=== PATIENT | male | born 1990 | race Caucasian/White ===

== ENCOUNTER 2016-12-15 21:00 | Emergency (ER) | payer BC ==
[2016-12-15 21:23] VITALS: BP 124/79
[2016-12-15] MEDS ORDERED: Cephalexin CAP* 500 MG PO ONE (21:30)
[2016-12-15] MEDS ORDERED: Tetan/Diph/Pertus SYR(Tdap)* 0.5 ML SYR(BOOSTRIX) use SYR IM ONE (21:30)
--- NOTE | 2016-12-15 21:38 | UC ---
Hand/Wrist HPI - HPI Summary HPI Summary: 26 yo male lacerated his left thumb on 12/12. Sutured at home the next day now swollen and painful he is right handed unsure of last tetanus - History Of Current Complaint Chief Complaint: UCLaceration Stated Complaint: LEFT THUMB WOUND CHECK Time Seen by Provider: 12/15/16 21:25 Hx Obtained From: Patient Onset/Duration: Sudden Onset Severity Initially: Moderate Severity Currently: Moderate Pain Intensity: 4 Pain Scale Used: 0-10 Numeric Character Of Pain: Dull, Aching Aggravating Factor(s): Other - touch Alleviating: Elevation Associated Signs And Symptoms: Positive: Swelling, Redness Related History: Dominant Hand Right - Allergies/Home Medications Allergies/Adverse Reactions: Allergies Allergy/AdvReac Type Severity Reaction Status Date / Time No Known Allergies Allergy Verified 12/15/16 21:15 PMH/Surg Hx/FS Hx/Imm Hx Previously Healthy: Yes - Surgical History Surgical History: Yes Surgery Procedure, Year, and Place: osteochondroma's removed both wrists and knees - Family History Known Family History: Positive: Hypertension - Social History Alcohol Use: Occasionally Substance Use Type: None Smoking Status (MU): Never Smoked Tobacco Type: Smokeless Tobacco - Immunization History Most Recent Tetanus Shot: unknown Review of Systems Constitutional: Negative Skin: Negative Eyes: Negative ENT: Negative Respiratory: Negative Cardiovascular: Negative Gastrointestinal: Negative Genitourinary: Negative Motor: Negative Neurovascular: Negative Musculoskeletal: Negative Neurological: Negative Psychological: Negative All Other Systems Reviewed And Are Negative: Yes Physical Exam Triage Information Reviewed: Yes Appearance: Well-Appearing, No Pain Distress, Well-Nourished Vital Signs: Initial Vital Signs Temp 98.2 F 12/15/16 21:10 Pulse 88 12/15/16 21:10 Resp 17 12/15/16 21:10 BP 124/79 12/15/16 21:10 Pulse Ox 96 12/15/16 21:10 Vital Signs Reviewed: Yes Eyes: Positive: Conjunctiva Clear ENT: Positive: Hearing grossly normal. Negative: Nasal congestion, Nasal drainage, Tonsillar exudate, Trismus, Muffled/hoarse voice Neck: Positive: Supple, Nontender, No Lymphadenopathy Respiratory: Positive: Lungs clear, Normal breath sounds, No respiratory distress Cardiovascular: Positive: RRR, No Murmur Musculoskeletal: Positive: Strength Intact, Edema @ - around laceration Skin Exam: Other - see image Hand/Wrist Course/Dx - Course Course Of Treatment: SUTURES REMOVED. STERILE DRESSING APPLIED - Differential Dx/Diagnosis Provider Diagnoses: INFECTED LEFT THUMB LACERATION Discharge - Discharge Plan Condition: Stable Disposition: HOME Prescriptions: Cephalexin CAP* [Keflex CAP*] 500 mg PO QID #28 cap Patient Education Materials: Cellulitis (ED) Referrals: No Primary Care Phys,NOPCP [Primary Care Provider] - Additional Instructions: infected left thumb laceration soak in warm soapy water 2x day until healed apply a thin film of antibiotic ointment keep it dressed while at work RECHECK FOR WORSENING SYMPTOMS RECHECK IN A WEEK IF NOT WELL HEALED YOUR TETANUS WAS UPDATED TODAY Images Hands: 1 - lac with surrounding erthyema
== END 2016-12-15 22:07 | disposition home or self-care (01) ==
LOC: UCCORT 21:00
DX: S61.012S Laceration without foreign body of left thumb without damage to nail, sequela (principal); L08.9 Local infection of the skin and subcutaneous tissue, unspecified; X58.XXXS Exposure to other specified factors, sequela; Y92.9 Unspecified place or not applicable; Z23 Encounter for immunization
CPT/HCPCS: 90471; 90715; 99212; A9270-GY; G0463

== ENCOUNTER 2017-09-08 12:40 | Emergency (ER) | payer BC ==
[2017-09-08 15:29] VITALS: BP 129/88
--- NOTE | 2017-09-08 15:30 | UC ---
Respiratory Complaint HPI - HPI Summary HPI Summary: 24 hours of symptoms- cough, productive, body aches, fever, chills, throat pain. Patient believes symptoms are improving, has similar symptoms, works in day care. no prior illnesses. - History of Current Complaint Chief Complaint: UCGeneralIllness Stated Complaint: COUGH Time Seen by Provider: 09/08/17 15:24 Hx Obtained From: Patient Onset/Duration: Sudden Onset, Lasting Days Timing: Constant Severity Initially: Moderate Severity Currently: Moderate Pain Intensity: 2 Pain Scale Used: 0-10 Numeric Character: Cough: Nonproductive - Allergies/Home Medications Allergies/Adverse Reactions: Allergies Allergy/AdvReac Type Severity Reaction Status Date / Time No Known Allergies Allergy Verified 09/08/17 15:25 PMH/Surg Hx/FS Hx/Imm Hx Previously Healthy: Yes - Surgical History Surgical History: Yes Surgery Procedure, Year, and Place: osteochondroma's removed both wrists and knees - Family History Known Family History: Positive: Hypertension - Social History Alcohol Use: None Substance Use Type: None Smoking Status (MU): Never Smoked Tobacco Type: Smokeless Tobacco - Immunization History Most Recent Tetanus Shot: unknown Review of Systems Constitutional: Fever, Chills ENT: Sore Throat Respiratory: Cough Is Patient Immunocompromised?: No All Other Systems Reviewed And Are Negative: Yes Physical Exam Triage Information Reviewed: Yes Appearance: Well-Appearing, No Pain Distress, Well-Nourished Vital Signs: Initial Vital Signs Temp 99.2 F 09/08/17 15:24 Pulse 98 09/08/17 15:24 Resp 16 09/08/17 15:24 BP 129/88 09/08/17 15:24 Pulse Ox 99 09/08/17 15:24 Vital Signs Reviewed: Yes Eyes: Positive: Conjunctiva Clear ENT: Positive: Pharyngeal erythema - minimally no erythema, TMs normal, Sinus tenderness - minimally, Uvula midline Neck: Positive: Supple, Nontender, No Lymphadenopathy Respiratory: Positive: Chest non-tender, Lungs clear, Normal breath sounds, No respiratory distress, No accessory muscle use Cardiovascular: Positive: RRR, No Murmur Abdomen Description: Positive: Nontender, No Organomegaly. Negative: CVA Tenderness (R), CVA Tenderness (L) UC Diagnostic Evaluation - Laboratory O2 Sat by Pulse Oximetry: 99 Respiratory Course/Dx - Course Course Of Treatment: rapid flu- + for influ A. tamiflu given to and , work note given, increase rest, conservative treatment. - Differential Dx/Diagnosis Provider Diagnoses: influenza A Discharge - Discharge Plan Condition: Good Disposition: HOME Prescriptions: Dextromethorphan/Benzocaine [Cepacol Sorethroat-Cough [place]] 1 each PO Q4HR PRN # 60 lozenge PRN Reason: sore throat, pain Oseltamivir CAP* [Tamiflu CAP*] 75 mg PO BID #10 cap Patient Education Materials: Influenza (ED) Forms: *Work Release Referrals: No Primary Care Phys,NOPCP [Primary Care Provider] - Additional Instructions: - increase fluids - Increase rest - Motrin/ tylenol as needed for pain - cepacol lozenges for your throat - FOllow up with primary physician within 2-3 days if no improvement, worsening
== END 2017-09-08 16:23 | disposition home or self-care (01) ==
LOC: UCCORT 12:40
DX: J10.1 Influenza due to other identified influenza virus with other respiratory manifestations (principal)
CPT/HCPCS: 87502; 99212; G0463

== ENCOUNTER 2018-09-03 18:32 | Emergency (ER) | payer BC ==
[2018-09-03 19:27] VITALS: BP 139/82
--- NOTE | 2018-09-03 19:38 | ED ---
Throat Pain/Nasal Congestion - HPI Summary HPI Summary: 28 yr old male with the complaint of bilateral frontal sinus pressure, and maxillary sinus pressure for about a month. Pain is moderate, and associated with yellow nasal drainage. No fever or chills. He also has a cough. He works in a [employer] environment. - History of Current Complaint Chief Complaint: UCGeneralIllness Time Seen by Provider: 09/03/18 19:30 - Allergies/Home Medications Allergies/Adverse Reactions: Allergies Allergy/AdvReac Type Severity Reaction Status Date / Time No Known Allergies Allergy Verified 09/03/18 19:27 PMH/Surg Hx/FS Hx/Imm Hx Previously Healthy: Yes - Surgical History Surgery Procedure, Year, and Place: osteochondroma's removed both wrists and knees. hernia repair 2007 Infectious Disease History: No Infectious Disease History: Denies: Traveled Outside the [place] in Last 30 Days - Family History Known Family History: Positive: Hypertension - Social History Occupation: Employed Full-time Lives: With Family Alcohol Use: Occasionally Substance Use Type: Reports: None Smoking Status (MU): Never Smoked Tobacco Type: Smokeless Tobacco Review of Systems Constitutional: Negative Positive: Nasal Discharge, Other Positive: Cough All Other Systems Reviewed And Are Negative: Yes Physical Exam Triage Information Reviewed: Yes Vital Signs On Initial Exam: Initial Vitals Temp Pulse Resp BP Pulse Ox 97.6 F 79 17 139/82 99 09/03/18 19:23 09/03/18 19:23 09/03/18 19:23 09/03/18 19:23 09/03/18 19:23 Vital Signs Reviewed: Yes Appearance: Positive: Well-Appearing, No Pain Distress Skin: Positive: Warm, Skin Color Reflects Adequate Perfusion Head/Face: Positive: Normal Head/Face Inspection Eyes: Positive: EOMI ENT: Positive: Nasal congestion, Nasal drainage, TMs normal, Sinus tenderness Neck: Positive: Nontender Respiratory/Lung Sounds: Positive: Clear to Auscultation, Breath Sounds Present Cardiovascular: Positive: RRR. Negative: Murmur Abdomen Description: Negative: Distended Musculoskeletal: Positive: Strength/ROM Intact Neurological: Positive: Sensory/Motor Intact, Alert, Oriented to Person Place, Time, CN Intact II-III, Normal Gait, Speech Normal Psychiatric: Positive: Normal Diagnostics - Vital Signs Vital Signs Temp Pulse Resp BP Pulse Ox 09/03/18 19:23 97.6 F 79 17 139/82 99 - Laboratory Lab Statement: Any lab studies that have been ordered have been reviewed, and results considered in the medical decision making process. EENT Course/Dx - Course Course Of Treatment: 28 yr old with sinusitis. Elevated BP, referral to PMD, and augmentin for sinuses. - Diagnoses Provider Diagnoses: Sinusitis, Hypertension Discharge - Sign-Out/Discharge Documenting (check all that apply): Patient Departure All imaging exams completed and their final reports reviewed: No Studies - Discharge Plan Condition: Good Disposition: HOME Prescriptions: Amoxicillin/Clavulanate TAB* [Augmentin TAB 875*] 875 mg PO BID #20 tab Patient Education Materials: Sinusitis (ED), Hypertension (ED) Referrals: No Primary Care Phys,NOPCP [Primary Care Provider] - [facility] [place] [facility]ERR[facility] [Outside] - 3 Days - Billing Disposition and Condition Condition: GOOD Disposition: Home
== END 2018-09-03 19:41 | disposition home or self-care (01) ==
LOC: UCCORT 18:32
DX: J32.9 Chronic sinusitis, unspecified (principal); I10 Essential (primary) hypertension
CPT/HCPCS: 99212; G0463

== ENCOUNTER 2019-08-24 14:51 | Emergency (ER) | payer BC ==
[2019-08-24 15:25] VITALS: BP 132/84
--- NOTE | 2019-08-24 15:49 | UC ---
Throat Pain/Nasal Jarvis HPI - HPI Summary HPI Summary: 29-year-old male comes in with a chief complaint of sinusitis symptoms for one month. Patient's had yellow rhinorrhea sinus pressure or postnasal drip. Hot steamy showers help move the rhinorrhea out. Patient reports he works in a [employer] environments and he gets recurrent sinusitis in the wintertime. No chest congestion. His ears have been popping recently. - History of Current Complaint Chief Complaint: UCGeneralIllness Stated Complaint: SINUS COMPLAINT Time Seen by Provider: 08/24/19 15:39 Pain Intensity: 0 - Allergies/Home Medications Allergies/Adverse Reactions: Allergies Allergy/AdvReac Type Severity Reaction Status Date / Time No Known Allergies Allergy Verified 08/24/19 15:25 PMH/Surg Hx/FS Hx/Imm Hx Previously Healthy: Yes - Surgical History Surgical History: Yes Surgery Procedure, Year, and Place: osteochondroma's removed both wrists and knees. hernia repair 2007 - Family History Known Family History: Positive: Hypertension - Social History Alcohol Use: None Substance Use Type: None Smoking Status (MU): Never Smoked Tobacco Type: Smokeless Tobacco - Immunization History Most Recent Tetanus Shot: unknown Review of Systems All Other Systems Reviewed And Are Negative: Yes Constitutional: Positive: Other - see hpi Skin: Positive: Negative Eyes: Positive: Negative ENT: Positive: Sore Throat, Nasal Discharge, Sinus Congestion, Sinus Pain/ Tenderness Respiratory: Positive: Negative Cardiovascular: Positive: Negative Gastrointestinal: Positive: Negative Motor: Positive: Negative Neurovascular: Positive: Negative Musculoskeletal: Positive: Negative Neurological: Positive: Negative Psychological: Positive: Negative Is Patient Immunocompromised?: No Physical Exam Triage Information Reviewed: Yes Appearance: Well-Appearing, No Pain Distress, Well-Nourished Vital Signs: Initial Vital Signs Temp 97.5 F 08/24/19 15:21 Pulse 97 08/24/19 15:21 Resp 17 08/24/19 15:21 BP 132/84 08/24/19 15:21 Pulse Ox 97 08/24/19 15:21 Vital Signs Reviewed: Yes Eye Exam: Normal Eyes: Positive: Conjunctiva Clear ENT: Positive: Nasal congestion, Nasal drainage, Sinus tenderness Neck: Positive: Supple Respiratory: Positive: Lungs clear, Normal breath sounds, No respiratory distress Cardiovascular: Positive: RRR Musculoskeletal: Positive: Strength Intact, ROM Intact Neurological: Positive: Alert, Muscle Tone Normal Psychological: Positive: Age Appropriate Behavior Skin Exam: Normal Throat Pain/Nasal Course/Dx - Course Course Of Treatment: going to treat with Augmentin. Also do a prescription for Flonase. I also recommended using nasal lavage. Reevaluate if not improving or worse. Otherwise follow-up primary care doctor. - Differential Dx/Diagnosis Provider Diagnosis: Sinusitis Discharge ED - Sign-Out/Discharge Documenting (check all that apply): Patient Departure All imaging exams completed and their final reports reviewed: No Studies - Discharge Plan Condition: Stable Disposition: HOME Prescriptions: Amoxicillin/Clavulanate TAB* [Augmentin TAB 875*] 875 mg PO BID #20 tab Fluticasone NASAL SPRAY 50MCG* [Flonase NASAL SPRAY 50MCG*] 2 spray BOTH NARES DAILY #1 btl Patient Education Materials: Sinusitis (ED) [place] [facility] [place] [place] Additional Instructions: FOLLOW UP WITH YOUR DOCTOR IF NOT COMPLETELY IMPROVED. GET REEVALUATED SOONER IF NOT IMPROVING OR WORSE OR ANY QUESTIONS OR CONCERNS. - Billing Disposition and Condition Condition: STABLE Disposition: Home
== END 2019-08-24 15:54 | disposition home or self-care (01) ==
LOC: UCCORT 14:51
DX: J32.9 Chronic sinusitis, unspecified (principal)
CPT/HCPCS: 99212; G0463

== ENCOUNTER 2023-10-12 02:29 | Observation (INO) ==
[2023-10-12 03:00] LABS: ABS Basophils 0.1 10^3/uL (0.0-0.1); ABS Eosinophils 0.3 10^3/uL (0.0-0.5); ABS Lymphocytes 2.3 10^3/uL (1.0-4.8); ABS Monocytes 1.1 10^3/uL (0.0-1.1); ABS Neutrophils 3.6 10^3/uL (1.5-7.6); ABS Nucleated RBC 0.02 10^3/ul; Eosinophil % 3.4 %; Hemoglobin 16.1 g/dL (13.2-16.3); Lymphocyte % 31.3 %; Mean Corpuscular Hemoglobin 31.8 pg (27-33); Mean Corpuscular Hgb Conc 35.7 g/dL (31-36); Mean Corpuscular Volume 89.1 fL (80-97); Mean Platelet Volume 9.2 fL (7.5-11.2); Nucleated Red Blood Cells % 0.3 %/100WBC (0.0-0.8); Platelet Count 205 10^3/uL (150-450); Red Blood Count 5.05 10^6/uL (4.06-5.63); Red Cell Distribution Width 12.8 % (12-17); White Blood Count 7.4 10^3/uL (3.6-10.2)
[2023-10-12 03:05] LABS: INR 1.04 (0.83-1.13)
[2023-10-12 03:42] LABS: Albumin 4.2 g/dL (3.2-5.2); Albumin/Globulin Ratio 1.7 (1-3); Calcium 9.1 mg/dL (8.6-10.3); Creatinine, Serum 0.98 mg/dL (0.67-1.17); Globulin 2.5 g/dL (2-4); Potassium 4.1 mmol/L (3.5-5.0); Total Bilirubin 0.6 mg/dL (0.2-1.0); Total Protein 6.7 g/dL (6.4-8.9); eGFR CKD-EPI 104.4 (>60)
[2023-10-12 03:49] LABS: Magnesium 2.1 mg/dL (1.9-2.7)
[2023-10-12] MEDS: dilTIAZem 30 MG TAB PO ONE (04:09)
[2023-10-12 04:51] LABS: High Sensitivity Troponin 1 Hr 3 pg/mL (<20)
[2023-10-12] MEDS: Metoprolol Tartrate 5 mg VIAL 5 ml VIAL (1 mg/ml) IV ONE (06:23)
[2023-10-12 10:52] LABS: Urine Benzodiazepine Screen None Detected (None Detect); Urine Cannabinoids Screen None Detected (None Detect); Urine Opiates Screen None Detected (None Detect)
[2023-10-12 15:17] VITALS: BP 139/94
== END 2023-10-12 15:30 | disposition home or self-care (01) ==
LOC: EDHOLD 02:29 → ED 02:29 → SUATTDRO 04:55 → EDHOLD 15:29
PROVIDERS: ADMIT Internal Medicine; ATTEND Internal Medicine